=== PATIENT | male | born 1995 | race Two or more races ===

== ENCOUNTER 2024-08-15 20:33 | Emergency (ER) | payer MEDICAID ==
[~2024-08-15] VITALS: Ht 170.2 cm; Wt 81.0 kg
--- NOTE | 2024-08-15 21:10 | ED.PDOC ---
Altered Mental Status HPI Comments 29-year-old male who came to ER via EMS for alcohol intoxication. Patient has history of kidney transplant. Per family member, patient has been binge drinking alcohol for the past few days. Has been nauseated and dry heaving earlier today from the alcohol. No further information could be taken of the patient's time of care. Chief Complaint: ETOH Time Seen by MD: 21:10 Reviewed Notes: Nurses Notes Allergies: Coded Allergies: NO KNOWN ALLERGIES (Unverified , 08/15/24) Information Source: Patient Mode of Arrival: EMS Severity: Unable to Care for Self Timing: Hours Duration: Since onset Quality: Decreased Alertness, Change in Behavior, Confusion Recent: Vomiting, Other (Alcohol intake) Past Medical History PAST MEDICAL HISTORY: CKF Past Medical History (Other): IgA nephropathy Surgical History (Other): Kidney transplant 2012 Family History Family History: Reviewed,noncontributory to illness Social History Smoker: Non-Smoker Alcohol: Heavy Drugs: Denies Drug Use Lives In: Home Unable to Obtain due to: Altered Mental Status, Other (Intoxicated alcohol) Physical Exam General Appearance: No Apparent Distress, Normal HEENT: Normal ENT Inspection, Pharynx Normal, TMs Normal Neck: Full Range of Motion, Non-Tender, Normal, Normal Inspection Respiratory: Chest Non-Tender, Lungs Clear, No Accessory Muscle Use, No Respiratory Distress, Normal Breath Sounds Cardiovascular: No Edema, No JVD, No Murmur, No Gallop, Normal Peripheral Pulses, Regular Rate/Rhythm Breast Exam: Deferred Gastrointestinal: No Organomegaly, Non Tender, No Pulsatile Mass, Normal Bowel Sounds, Soft Genitalia: Deferred Pelvic: Deferred Rectal: Deferred Extremities: No calf tenderness, Normal capillary refill, Normal inspection, Normal range of motion, Non-tender, No pedal edema Musculoskeletal : Apperance: Normal Neurologic: Alert, 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 Was a procedure done?: No Differential Diagnosis (ALOC) Differential Diagnosis: Encephalopathy, Drug Overdose, ETOH Intoxication X-Ray, Labs, Meds, VS Vital Signs Date Time Temp Pulse Resp B/P (MAP) Pulse Ox O2 Delivery O2 Flow Rate FiO2 08/15/24 23:00 18 96 Room Air* 0 21 21 08/15/24 22:58 97.9 105 16 122/88 (99) 97 97.9 08/15/24 20:39 97.7 90 12 122/85 (97) 96 Time of 1ST Reevaluation: 21:06 Reevaluation 1ST: Unchanged Patient Education/Counseling: Diagnosis, Treatment, Other (Confused disoriented) Family Education/Counseling: Diagnosis, Treatment Departure 1 Departure Time of Disposition: 00:27 (Patient's family is here to take him home. Patient is able ambulate without assistance.) Impression: Primary Impression: Alcohol intoxication Qualified Codes: F10.921 - Alcohol use, unspecified with intoxication delirium Disposition: HOME / SELF CARE / HOMELESS Condition: Stable Additional Instructions: You were intoxicated. It is important to only drink in moderation. If you need help quitting you can call (HELP). If your symptoms worsen or you have any other concerns then please return to the ER. Discharged With: Spouse Critical Care Note Critical Care Time?: Yes (35 min-critical care time only) Stability Stability form required: No Heart Score Heart Score: Heart Score Response (Comments) Value History N/A 0 EKG N/A 0 Age N/A 0 Risk Factors N/A 0 Troponin N/A 0 Total 0 I personally scribed for NANCY LEE MD ([email or web address]) on 08/15/24 at 21:10. Electronically submitted by Juan Bailey ([email or web address]). NANCY LEE MD Aug 15, 2024 21:10
[2024-08-15 22:58] VITALS: BP 122/88; PULSE 105; TEMP 97.9
[2024-08-15 23:00] VITALS: RESP 18; O2SAT 96
== END 2024-08-16 00:33 | disposition home or self-care (01) ==
LOC: EDBD 20:33 → ER 20:33
DX: F10.129 Alcohol abuse with intoxication, unspecified (principal); R11.0 Nausea; N18.9 Chronic kidney disease, unspecified

== ENCOUNTER 2025-07-01 07:18 | Outpatient (CLI) | payer OTHER ==
[2025-07-01 08:03] LABS: Hematocrit 45.2 % (41.0-53.0); Hemoglobin 15.6 g/dL (13.5-17.5); Mean Corpuscular Hemoglobin 28.8 pg (28.0-32.0); Mean Corpuscular Volume 83.3 fL (80.0-100.0); Nucleated Red Blood Cells % 0.0 %
[2025-07-01 08:10] LABS: Urine Protein, UAD Negative (Negative)
[2025-07-01 08:58] LABS: Alkaline Phosphatase 78 U/L (46-116); Calcium 9.3 mg/dL (8.7-10.4); Carbon Dioxide 23 mmol/L (20-31); Triglycerides 119 mg/dL (< 150)
[2025-07-01 08:59] LABS: Anion Gap 13 (5-15); BUN/Creatinine Ratio 7.6 (10.0-20.0); Blood Urea Nitrogen 9 mg/dL (9-23); Glucose 89 mg/dL (74-106); Total Protein 8.1 g/dL (5.7-8.2)
[2025-07-01 09:00] LABS: Albumin 4.6 g/dL (3.2-4.8); Cholesterol 169 mg/dL (< 200); HDL Cholesterol 45 mg/dL (40-59)
[2025-07-01 09:10] LABS: Alanine Aminotransferase 56 U/L (7-40); Bilirubin, Total 1.7 mg/dL (0.2-1.0); Chloride 103 mmol/L (98-107); Potassium 4.0 mmol/L (3.5-5.1); Sodium 139 mmol/L (136-145)
== END 2025-07-01 17:00 | disposition home or self-care (01) ==
LOC: LAB 07:18
PROVIDERS: ATTEND Nurse Practitioner Family
DX: E55.9 Vitamin D deficiency, unspecified (principal); R10.9 Unspecified abdominal pain; Z11.3 Encounter for screening for infections with a predominantly sexual mode of transmission; Z00.01 Encounter for general adult medical examination with abnormal findings
CPT/HCPCS: 36415; 80053; 80061; 81001; 82306; 83036; 84443; 85025